=== PATIENT | male | born 1980 | race Two or more races ===

== ENCOUNTER 2020-11-29 13:31 | Emergency (ER) | payer OTHER ==
[~2020-11-29] VITALS: Ht 180.3 cm; Wt 62.6 kg
== END 2020-11-29 15:43 | disposition home or self-care (01) ==
LOC: ER 13:31
DX: S60.051A Contusion of right little finger without damage to nail, initial encounter (principal); W22.8XXA Striking against or struck by other objects, initial encounter; Y93.89 Activity, other specified; Y92.69 Other specified industrial and construction area as the place of occurrence of the external cause; Y99.8 Other external cause status